=== PATIENT | female | born 1980 | race Two or more races ===

== ENCOUNTER 2024-04-13 08:14 | Emergency (ER) | payer MEDICAID, SELFPAY ==
--- NOTE | 2024-04-13 08:34 | XR_ITS ---
Examination: Abdomen sonogram, Limited Date and time of exam: April 13, 2024 0912 hours INDICATIONS: Abdominal pain beginning 2 days ago, history cholelithiasis Technique: Real-time pierre scale transabdominal sonographic images of the upper abdomen obtained. Findings: Contracted gallbladder, suspicious for small stones Common bile duct 0.2 cm no stones Pancreatic head 2.3 cm Liver 15.1 cm fatty infiltration no focal liver lesions Normal hepatopedal portal venous flow Patent IVC IMPRESSION: Recommend repeating the gallbladder study with fasting
--- NOTE | 2024-04-13 08:34 | PD.EDRME ---
Rapid Medical Screening Exam RME Arrival date/time: 04/13/24 08:14 43-year-old female presents to the emergency department today complains of upper abdominal pain Chief Complaint: Abdominal Pain
[2024-04-13 08:39] VITALS: BP 162/91; PULSE 65; RESP 18; TEMP 36.8; O2SAT 100; BMI 25.2
[2024-04-13 08:59] LABS: Basophils % (Auto) 0 % (0-2.5); Eosinophils % (Auto) 0 % (0-10); Hematocrit 36.4 % (36.0-46.0); Hemoglobin 12.4 g/dL (12.0-16.0); Immature Granulocytes % (Auto) 0 % (0-0); Immature Granulocytes Auto 0.03 Thou/mm3 (0.00-0.00); Lymphocytes # (Auto) 1.2 Thou/mm3 (1.0-4.8); Lymphocytes % (Auto) 17 % (10-50); Mean Corpuscular HGB Conc 34.1 g/dl (31.0-37.0); Mean Corpuscular Hemoglobin 28.3 pg (25.0-35.0); Mean Corpuscular Volume 83 fL (80-100); Monocytes # (Auto) 0.4 Thou/mm3 (0.0-0.8); Monocytes % (Auto) 6 % (0-12); Neutrophils # (Auto) 5.3 Thou/mm3 (1.8-7.7); Neutrophils % (Auto) 76 % (37-80); Nucleated Red Blood Cell % 0 /100 WBC (0); Platelet Count 187 Thou/mm3 (140-440); Red Blood Count 4.38 Miln/mm3 (4.00-5.20)
[2024-04-13 09:18] LABS: Collection Type, Urine Clean Catch
[2024-04-13 09:19] LABS: Alanine Aminotransferase 373 U/L (10-49); Albumin, Serum 4.6 gm/dL (3.5-5.0); Albumin/Globulin Ratio 1.6 (1.2-2.2); Alkaline Phosphatase 141 U/L (46-116); Anion Gap 8 (7-16); Aspartate Amino Transferase 723 U/L (0-34); BUN/Creatinine Ratio 15 Ratio (12-20); Blood Urea Nitrogen 9 mg/dL (9-23); Calcium 9.3 mg/dL (8.3-10.6); Calcium (Corrected) 9.3 mg/dL (8.5-10.1); Carbon Dioxide 23.6 mMol/L (20.0-31.0); Chloride 109 mMol/L (98-107); Creatinine (Component) 0.6 mg/dL (0.6-1.3); Estimated Creatinine Clearance 93.7 mL/min (>60); Globulin 2.9 gm/dL (2.3-3.5); Glucose 110 mg/dL (74-106); Lipase 46 U/L (12-53); Osmolality,Calculated 280 (275-295); Sodium 141 mMol/L (136-145); Total Protein 7.5 gm/dL (5.7-8.2); Troponin I < 0.002 ng/mL (0.0-0.045); eGFR > 60 See Note
[2024-04-13 09:32] LABS: HCG Qualitative,Urine Negative
[2024-04-13 09:36] LABS: Bacteria,Urine Rare; Bilirubin,Urine Negative (Negative); Blood,Urine Negative (Negative); Clarity,Urine Turbid (Clear/Hazy); Color,Urine Yellow (Lt Yel-Yel); Culture Indicated,Urine Contaminated; Glucose, Urine Negative (Negative); Ketones,Urine Negative (Negative); Leukocyte Esterase,Urine Positive (Negative); Nitrite,Urine Negative (Negative); Protein,Urine Trace (Neg - Trace); RBC,Urine 4 /hpf (0-3); Specific Gravity,Urine 1.027 (1.001-1.035); Squamous Epithelial Cell,Urine 13 /hpf (0-5); Urobilinogen,Urine Negative mg/dL (0.0-1.0); WBC,Urine 26 /hpf (0-5)
[2024-04-13] MEDS: FAMOTIDINE 20 MG TABLET PO (09:43)
[2024-04-13] MEDS: LIDOCAINE VISCOUS 2% 15 ML UDC PO (09:43)
[2024-04-13] MEDS: MG HYD/AL HYD/SIME (Maalox Reg) SUSP 30 ML UDC PO (09:44)
[2024-04-13 10:32] VITALS: BP 141/99; PULSE 73; RESP 16; TEMP 36.8; O2SAT 98
--- NOTE | 2024-04-13 10:56 | EDNOTE_ITS ---
ED Abdominal Pain RME/HPI General Chief Complaint: Abdominal Pain Stated complaint: UPPER ABD PAIN, N/V Arrival date/time: 04/13/24 08:14 RME / HPI RME / HPI narrative: 04/13/24 08:14 43-year-old female presents to the emergency department today complains of upper abdominal pain DR. NATALIIA ROBLES ED EVALUATION: 43 year old female with past medical history significant for kidney stones which needed removal in past presents to the Emergency Department with complaint of upper abdominal pain. Associated symptoms include nausea and vomiting x3 episodes. She states she has had similar pain in the past. Denies any diarrhea or constipation. Denies any dysuria or other urinary symptoms. Related Data Home Medications ?Medication ?Instructions ?Recorded ?Confirmed No Known Home Medications 09/01/1908/08 Allergies Allergy/AdvReac Type Severity Reaction Status Date / Time No Known Allergies Allergy Verified 07/07/21 10:04 Review of Systems Review of Systems Systems Reviewed: All systems reviewed, normal except as documented Narrative Review of Systems: GEN: No fever, no chills, no weight loss EYES: No discharge, no visual changes, no pain HEENT: No ear pain, no congestion, no sore throat PULM: No shortness of breath, no cough, no congestion CV: No chest pain, no dyspnea on exertion, no palpitations GI: + nausea, + vomiting x3 episodes, no diarrhea, + upper abdominal pain, no constipation : No frequency, no urgency and no dysuria MUSC/SKEL: No joint pain, no back pain SKIN: No rash PSYCH: No hallucinations, no depression HEME/LYMPH: No easy bleeding or bruising tendencies NEURO: No weakness, no headache Past Medical History Past Medical History NEUROLOGIC: Positive Migraine GASTROINTESTINAL: Positive Gastrointestinal Disorders and Gall Bladder Disease REPRODUCTIVE: Positive Previous Pregnancies (X4) PSYCHO/SOCIAL: Positive Depression and Anxiety OTHER HISTORY: Positive Hospitalization and Anesthesia Reactions (RASH AFTER C- SECTION) Surgical History SURGICAL: Positive Tubal Ligation and Section Social History SMOKING STATUS: Never smoker SUBSTANCE USE: does not use ALCOHOL: Never ED Exam Narrative Physical exam: GENERAL APPEARANCE: alert and oriented x 4, well-developed, well-nourished, no acute distress VITALS: All vitals were reviewed and the pulse ox is 98% on room air, which is normal according to my interpretation. HEENT: Normocephalic, atraumatic; pupils equal, round, reactive to light; EOMI; mucous membranes pink, moist; oropharynx clear NECK: Supple LUNGS: CTABL; no wheezes, no rales, no rhonchi HEART: Regular rate, regular rhythm; normal S1, S2; no murmurs ABDOMEN: non distended; normal BS; soft, no tenderness, no guarding, no rebound; no masses, no organomegaly, no hernia BACK: no CVA tenderness EXTREMITIES: atraumatic; no edema NEUROLOGIC: awake; alert and oriented x4; cranial nerves II-XII grossly intact; no focal sensory or motor deficits PSYCHIATRIC: appropriate mood and affect SKIN: warm, dry, normal color; no rashes Course Quality Measures none Orders Category Date Time Status US gall bladder Stat Exams 04/13/24 08:34 Completed CBC Stat Lab 04/13/24 08:40 Completed Comprehensive Metabolic Panel Stat Lab 04/13/24 08:40 Completed HCG Qualitative,Urine Stat Lab 04/13/24 09:07 Completed Lipase Stat Lab 04/13/24 08:40 Completed Troponin I Stat Lab 04/13/24 08:40 Completed UA, C/S IF [Urinalysis, C/S if Indicated] Stat Lab 04/13/24 09:07 Completed Famotidine [Pepcid] Med 04/13/24 08:34 Discontinued 20 mg PO X1 ONE Ketorolac Inj [Toradol Inj] Med 04/13/24 11:56 Discontinued 30 mg IM X1 ONE Lidocaine 2% Viscous [Xylocaine 2% Viscous] Med 04/13/24 08:34 Discontinued 15 ml PO X1 ONE mg Hyd/Al Hyd/Robby Susp [Maalox Susp] Med 04/13/24 08:34 Discontinued 30 ml PO X1 ONE Vital Signs Vital signs: Vital Signs Temperature 98.3 F 04/13/24 08:39 Pulse Rate 65 04/13/24 08:39 Respiratory Rate 18 04/13/24 08:39 Blood Pressure 162/91 H 04/13/24 08:39 Pulse Oximetry (%) 100 04/13/24 08:39 Oxygen Delivery Method Room Air 04/13/24 08:39 Abdominal Pain MDM MDM Narrative MDM Narrative:: I, Diane Mckinley am scribing for and in the presence of Dr. Johnson. Patient data External records reviewed:: [facility] previous records (Reviewed last ED visit dated 10/30/22, discharged with the following: Gastroenteritis) Clinical information provided by:: patient Social determinants that could affect healthcare access:: none Patient has the following chronic illnesses:: kidney stones which needed removal in past How is presenting disease/condition affected by chronic disease/condition?: uneffected by Evaluation data The following diagnostics were reviewed and interpreted by me:: lab results and radiology exam(s) Lab and/or radiology exams considered but not ordered:: none Interpretation Summary: Procedure(s): US gall bladder Accession Number(s): [id number] cc: Fani (LAKEISHA),Ezequiel S[employer]IOR [employer] ANALYST; Nathaniel Marmolejo MD; NO PRIMARY/FAMILY,PHYSICIAN~ Examination: Abdomen sonogram, Limited Date and time of exam: April 13, 2024 0912 hours INDICATIONS: Abdominal pain beginning 2 days ago, history cholelithiasis Technique: Real-time pierre scale transabdominal sonographic images of the upper abdomen obtained. Findings: Contracted gallbladder, suspicious for small stones Common bile duct 0.2 cm no stones Pancreatic head 2.3 cm Liver 15.1 cm fatty infiltration no focal liver lesions Normal hepatopedal portal venous flow Patent IVC IMPRESSION: Recommend repeating the gallbladder study with fasting Dictated By: Nathaniel Marmolejo MD Medications / Prescriptions Medications or Prescriptions considered but not ordered:: none Medication administrations:: Medication Administration History Discontinued Medications Al Hydrox/Mg Hydrox/Simethicone (Mg Hyd/Al Hyd/Robby (Maalox Reg) Susp 30 Ml Udc) 30 ml PO X1 ONE Stop: 04/13/24 08:35 Last Admin: 04/13/24 09:44 Dose: 30 ml Documented By: DO Famotidine (Famotidine 20 Mg Tablet) 20 mg PO X1 ONE Stop: 04/13/24 08:35 Last Admin: 04/13/24 09:43 Dose: 20 mg Documented By: DO Ketorolac Tromethamine (Ketorolac Inj 30 Mg/Ml Vial) 30 mg IM X1 ONE Stop: 04/13/24 11:57 Last Admin: 04/13/24 12:07 Dose: 30 mg Documented By: MP Lidocaine HCl (Lidocaine Viscous 2% 15 Ml Udc) 15 ml PO X1 ONE Stop: 04/13/24 08:35 Last Admin: 04/13/24 09:43 Dose: 15 ml Documented By: DO see above Consultations Consultation(s) initiated? (list below): No Diagnosis Differential diagnosis abdominal pain: abdominal pain, pancreatitis and other (gallstones) Most likely diagnosis given after review of the tests above:: Biliary colic Elevated liver enzymes Admission Indicated Admission indicated?: not indicated Admission Request Was there a request for admission?: No Disposition Plan Disposition Plan: Discharge Discharge Attestation Discharge Attestation: The patient and all family members were given an opportunity to ask questions and understood the discharge instructions. Discharge instructions specifically effects, indications for sooner follow up or return to the emergency department, and the expected course of current diagnosis. Patient condition: Stable Discharge Plan Plan Patient Disposition: HOME (Self Care) Prescriptions/Referrals Prescriptions/Med Rec: No Action No Known Home Medications Referrals: No Primary/Family,Physician [Primary Care Provider] - In 1 week Problem List Clinical Impression: Biliary colic, Elevated liver enzymes Patient/Caregiver Discharge Instructions Education Materials: ED Gallstones with Biliary Colic Print Language: Estonian Stand Alone Forms: [facility]alle Award Info., Patient Portal Info Letter
[2024-04-13] MEDS: KETOROLAC INJ 30 MG/ML VIAL IM (12:07)
[2024-04-13 12:37] VITALS: BP 134/89; PULSE 66; RESP 18; TEMP 36.5; O2SAT 99
== END 2024-04-13 13:56 | disposition home or self-care (01) ==
PROVIDERS: Nurse Practitioner Primary Care; Emergency Provider Emergency Medicine
DX: K80.50 Calculus of bile duct without cholangitis or cholecystitis without obstruction (principal); R74.8 Abnormal levels of other serum enzymes
CPT/HCPCS: 36415; 76705; 80053; 81001; 81025; 83690; 84484; 85025; 96372; 99284; J1885; J3490; A9270